=== PATIENT | male | born 1960 | race Caucasian/White ===

== ENCOUNTER 2018-02-02 09:00 | Outpatient (AMBR) | payer MEDICAID, SELFPAY ==
--- NOTE | 2018-01-05 12:09 | PT.ODAYNRPT ---
PT Outpatient Daily Note Date of Service: January 05, 2018 OP Daily Note Visit Reasons: tka Outpatient Physical Therapy Treatment Date: 01/05/18 Subjective: Pt wants to continue with therapy to bend the knee more and walk better Objective: R knee AROM: flexion: 95 deg Extension: -3 deg SLR: 65 deg Strength: Quads: 4/5 Hamstrings: 4/5 PROM: flexion: 100 deg Assessment: Pt has attended 5/5 Rx visits and made progress with therapy goals. He has improved quad strength to 4/5 but is shy of the 4+ goal. He has improved exercise tolerance and end-range PROM into flexion. Continued gait instability and decreased balance reactions. Plan: Request additional visits to complete POC and acheive goals for 2x a week for 4 weeks. Length of Time (minutes) of Treatment: 30 Minutes Office Procedures PT Procedures PT Date of Service: 01/05/18 Therapeutic Exercise 15 minutes: Yes Manual Tube Wrapper 15 minutes: Yes
--- NOTE | 2018-01-17 13:59 | PTNOTE_ITS ---
PT Outpatient Daily Note Date of Service: January 17, 2018 OP Daily Note Visit Reasons: tka Outpatient Physical Therapy Treatment Date: 01/17/18 Subjective: The knee feels tight because he hasn't been to therapy for a while Objective: See F/S for therex MT: PPM into knee flexion to end-range with overpressure, STM to anterior knee and incision x10' total Assessment: Good improvement with PROM into knee flexion to 100 deg with myofascial tightness and pain limiting end-range. He is still unsteady on his feet mostly due to hemiplegia but wants to walk without assistive device. PT recommends he ambulate with assistive device at all times for safety. Plan: Continue per POC Office Procedures PT Procedures PT Date of Service: 01/05/18 Therapeutic Exercise 15 minutes: Yes Manual Sap Integration Architect 15 minutes: Yes PT Procedures PT Date of Service: 01/17/18 Therapeutic Exercise 15 minutes: Yes Manual Sap Integration Architect 15 minutes: Yes
--- NOTE | 2018-01-23 13:49 | PT.ODAYNRPT ---
PT Outpatient Daily Note Date of Service: January 23, 2018 OP Daily Note Visit Reasons: tka Outpatient Physical Therapy Treatment Date: 01/23/18 Subjective: He is walking with quad cane and his goal is to walk without assistive device Objective: See F/S for therex MT: PPM into knee extension to end-range with overpressure x5' total Adjusted quad cane 180 deg feet so flat is toward him Assessment: He is still unsteady on his feet mostly due to left hemiplegia but wants to walk without assistive device. PT recommends he ambulate with assistive device at all times for safety. Pt lacks about 5 deg of knee extension, improved slightly after manual therapy, good overpressure tolerance. Plan: Continue per POC Length of Time (minutes) of Treatment: 30 Minutes Office Procedures PT Procedures PT Date of Service: 01/05/18 Therapeutic Exercise 15 minutes: Yes Manual Engineer Rf Deployment 15 minutes: Yes PT Procedures PT Date of Service: 01/17/18 Therapeutic Exercise 15 minutes: Yes Manual Engineer Rf Deployment 15 minutes: Yes PT Procedures PT Date of Service: 01/23/18 Therapeutic Exercise 30 minutes: Yes
--- NOTE | 2018-01-26 08:49 | PTNOTE_ITS ---
PT Outpatient Daily Note Date of Service: January 26, 2018 OP Daily Note Visit Reasons: tka Outpatient Physical Therapy Treatment Date: 01/26/18 Subjective: He is walking with quad cane and his goal is to walk without assistive device Objective: See F/S for therex MT: PPM into knee flexion to end-range with overpressure x12' total KNee flexion PROM: 110 deg Assessment: Good improvement with knee flexion PROM to 110 deg today with high level of overpressure. He is still unsteady on his feet mostly due to left hemiplegia but wants to walk without assistive device. PT recommends he ambulate with assistive device at all times for safety. Pt lacks about 5 deg of knee extension, improved slightly after manual therapy, good overpressure tolerance. Plan: Continue per POC Length of Time (minutes) of Treatment: 30 Minutes Office Procedures PT Procedures PT Date of Service: 01/05/18 Therapeutic Exercise 15 minutes: Yes Manual Record Librarian 15 minutes: Yes PT Procedures PT Date of Service: 01/26/18 Therapeutic Exercise 15 minutes: Yes Manual Record Librarian 15 minutes: Yes PT Procedures PT Date of Service: 01/17/18 Therapeutic Exercise 15 minutes: Yes Manual Record Librarian 15 minutes: Yes PT Procedures PT Date of Service: 01/23/18 Therapeutic Exercise 30 minutes: Yes
--- NOTE | 2018-01-30 15:18 | PTNOTE_ITS ---
PT Outpatient Daily Note Date of Service: January 30, 2018 OP Daily Note Visit Reasons: tka Outpatient Physical Therapy Treatment Date: 01/30/18 Subjective: He is walking with quad cane and his goal is to walk without assistive device Objective: See F/S for therex MT: PPM into knee flexion to end-range with overpressure x10' total KNee flexion PROM: 110 deg Assessment: Good improvement with knee flexion PROM to 110 deg today with high level of overpressure. He is still unsteady on his feet mostly due to left hemiplegia but wants to walk without assistive device. PT recommends he ambulate with assistive device at all times for safety. Pt lacks about 5 deg of knee extension, improved slightly after manual therapy, good overpressure tolerance. Plan: Continue per POC Length of Time (minutes) of Treatment: 30 Minutes Office Procedures PT Procedures PT Date of Service: 01/05/18 Therapeutic Exercise 15 minutes: Yes Manual Lining Strap Closer 15 minutes: Yes PT Procedures PT Date of Service: 01/26/18 Therapeutic Exercise 15 minutes: Yes Manual Lining Strap Closer 15 minutes: Yes PT Procedures PT Date of Service: 01/17/18 Therapeutic Exercise 15 minutes: Yes Manual Lining Strap Closer 15 minutes: Yes PT Procedures PT Date of Service: 01/23/18 Therapeutic Exercise 30 minutes: Yes PT Procedures PT Date of Service: 01/30/18 Therapeutic Exercise 15 minutes: Yes Manual Lining Strap Closer 15 minutes: Yes
--- NOTE | 2018-02-02 14:01 | PTNOTE_ITS ---
PT Outpatient Daily Note Date of Service: February 02, 2018 OP Daily Note Visit Reasons: tka Outpatient Physical Therapy Treatment Date: 02/02/18 Subjective: He is walking with quad cane and his goal is to walk without assistive device Objective: See F/S for therex Assessment: Pt stood on airex balance pads without hands for about 5 seconds at a time looking down and required hand support or assist to avoid LOB on uneven surfaces. PT recommends he ambulate with assistive device at all times for safety. Plan: Continue per POC Length of Time (minutes) of Treatment: 30 Minutes Office Procedures PT Procedures PT Date of Service: 01/05/18 Therapeutic Exercise 15 minutes: Yes Manual Senior Software Architect 15 minutes: Yes PT Procedures PT Date of Service: 01/26/18 Therapeutic Exercise 15 minutes: Yes Manual Senior Software Architect 15 minutes: Yes PT Procedures PT Date of Service: 01/17/18 Therapeutic Exercise 15 minutes: Yes Manual Senior Software Architect 15 minutes: Yes PT Procedures PT Date of Service: 01/23/18 Therapeutic Exercise 30 minutes: Yes PT Procedures PT Date of Service: 01/30/18 Therapeutic Exercise 15 minutes: Yes Manual Senior Software Architect 15 minutes: Yes PT Procedures PT Date of Service: 02/02/18 Therapeutic Exercise 30 minutes: Yes
== END 2018-02-03 23:59 | disposition home or self-care (01) ==
PROVIDERS: PCP Family Medicine; Referring Provider Family Medicine; Visit Provider Orthopaedic Surgery
DX: Z96.651 Presence of right artificial knee joint (principal); R26.89 Other abnormalities of gait and mobility
CPT/HCPCS: 97110; 97140

== ENCOUNTER → 2025-04-11 | Outpatient (CLI) | payer MEDICAID, SELFPAY ==
--- NOTE | 2025-04-11 12:42 | XR_ITS ---
Examination: Knee bilateral, 6 views Technique: Knee AP, lateral, oblique, each knee total 6 views Date and time of exam: April 11, 2025, 1307 hours INDICATIONS: Bilateral knee pain several years FINDINGS: Nonstandard views, the patient is in a wheelchair both knees are fixed in a flexed position Total right knee arthroplasty. Satisfactory alignment on the lateral view Severe osteopenia The left knee is flexed, assessment mediolateral joint space is not possible Moderate narrowing patellofemoral joint IMPRESSION: Severely limited study Total right knee arthroplasty with satisfactory alignment on the lateral view Moderate narrowing patellofemoral joint left knee
== END | disposition home or self-care (01) ==
LOC: CDIM 12:29
PROVIDERS: PCP Internal Medicine; Referring Provider Internal Medicine; Visit Provider Internal Medicine
DX: M25.862 Other specified joint disorders, left knee (principal); M25.861 Other specified joint disorders, right knee; Z96.651 Presence of right artificial knee joint
CPT/HCPCS: 73562